=== PATIENT | male | born 1970 | race Caucasian/White ===

== ENCOUNTER 2023-10-04 14:21 | Emergency (ER) | payer SELFPAY ==
[~2023-10-04] VITALS: Ht 185.4 cm; Wt 99.0 kg
[2023-10-04 14:25] VITALS: O2SAT 96
[2023-10-04 15:56] LABS: BASOPHILS % 0.5 % (0.0-2.0); HEMATOCRIT. 37.5 % (42.0-52.0); HEMOGLOBIN. 12.8 g/dL (14.0-18.0); LYMPHOCYTES % 19.4 % (20.0-50.0); MEAN CORPUSCULAR HEMOGLOBIN 29.1 pg (28.0-32.0); MEAN CORPUSCULAR HGB CONC 34.1 g/dL (31.0-37.0); MEAN CORPUSCULAR VOLUME 85.4 fL (80.0-94.0); MEAN PLATELET VOLUME 8.8 fl (7.4-10.4); MONOCYTES % 6.5 % (2.0-8.0); NEUTROPHILS % 71.6 % (40.0-76.0); PLATELET 163 x1000/uL (130-400); RED BLOOD CELL COUNT 4.39 mill/uL (4.7-6.1); RED CELL DISTRIBUTION WIDTH 14.2 % (11.6-14.6); WHITE BLOOD COUNT 7.1 x1000/uL (4.5-11.0)
[2023-10-04 16:14] LABS: ALANINE AMINOTRANSFERASE 21 IU/L (10-49); ALBUMIN 3.8 g/dL (3.2-4.8); ASPARTATE AMINOTRANSFERASE 23 IU/L (<34); BILIRUBIN TOTAL 0.5 mg/dL (0.1-1.0); CALCIUM 8.1 mg/dL (8.7-10.4); CARBON DIOXIDE 31 mEq/L (21-32); CHLORIDE 106 mEq/L (98-107); GLUCOSE 92 mg/dL (70-105); POTASSIUM 3.6 mEq/L (3.5-5.1); SODIUM 140 mEq/L (136-145); TROPONIN I HIGH SENSITIVITY 5 ng/L (3.0-53); UREA NITROGEN BLOOD 28 mg/dL (9-23)
[2023-10-04 16:15] LABS: ETHANOL BLOOD < 10 mg/dL (<10)
[2023-10-04 16:28] VITALS: TEMP 98.5
[2023-10-04 19:17] VITALS: BP 123/61; PULSE 66; RESP 18
== END 2023-10-04 20:00 | disposition home or self-care (01) ==
LOC: ER 14:21
DX: F19.90 Other psychoactive substance use, unspecified, uncomplicated (principal); I10 Essential (primary) hypertension
CPT/HCPCS: 80053; 80320; 82962; 85025; 84484; 36415; 71045; 70450; 93005; 99285; Z7610 ×2; G0480